=== PATIENT | female | born 1990 | race Caucasian/White ===

== ENCOUNTER 2016-07-07 20:57 | Emergency (ER) | payer OTHER | END 2016-07-07 21:35 | disposition home or self-care (01) | LOC: ER1 20:57 | DX: O99.89 Other specified diseases and conditions complicating pregnancy, childbirth and the puerperium (principal); R21 Rash and other nonspecific skin eruption; O99.511 Diseases of the respiratory system complicating pregnancy, first trimester; J45.909 Unspecified asthma, uncomplicated; O99.331 Smoking (tobacco) complicating pregnancy, first trimester; F17.210 Nicotine dependence, cigarettes, uncomplicated; Z88.8 Allergy status to other drugs, medicaments and biological substances; Z90.49 Acquired absence of other specified parts of digestive tract; Z79.899 Other long term (current) drug therapy; Z3A.01 Less than 8 weeks gestation of pregnancy | CPT/HCPCS: 99282 ==

== ENCOUNTER 2016-08-04 00:22 | Emergency (ER) | payer OTHER | END 2016-08-04 03:57 | disposition left against medical advice (07) | LOC: ER1 00:22 | DX: Z53.21 Procedure and treatment not carried out due to patient leaving prior to being seen by health care provider (principal) | CPT/HCPCS: 81001; 84703; 87086 ==

== ENCOUNTER 2016-10-06 19:28 | Emergency (ER) | payer OTHER ==
[2016-10-07 00:06] LABS: HEMOGLOBIN 12.9 gm/dl (12.3-15.3); RED BLOOD COUNT 3.73 M/UL (4.00-5.10); WHITE BLOOD COUNT 18.3 K/UL (4.5-11.0)
[2016-10-07 00:19] LABS: BUN/CREATININE RATIO 13 (0-10)
== END 2016-10-07 05:01 | disposition home or self-care (01) ==
LOC: ER1 19:28
PROVIDERS: Physician Assistant
DX: O23.592 Infection of other part of genital tract in pregnancy, second trimester (principal); N76.0 Acute vaginitis; B96.89 Other specified bacterial agents as the cause of diseases classified elsewhere; Z88.8 Allergy status to other drugs, medicaments and biological substances; Z3A.19 19 weeks gestation of pregnancy
CPT/HCPCS: 36415; 76815; 80053; 81001; 84702; 85025; 87086; 87210; 96360; 99284

== ENCOUNTER → 2021-12-06 | Outpatient (CLI) | payer OTHER ==
[~2021-12-06] MED LIST: BACTRIM DS TAB1 EACH PO; COLACE 100MG C100 MG PO; GLUCOPHAGE 500500 MG PO; IBUPROFEN600 MG PO; LEVAQUIN500 MG PO; LODINE CAP 300300 MG PO; SINGULAIR10 MG PO; TESSALON PERLE100 MG PO; TYLENOL 500 MG500 MG PO; VENTOLIN HFA 66.7 GM INH; ZOFRAN ODT 4 MG4 MG SL; ZOFRAN ODT4 MG PO
[2021-12-06 12:40] LABS: HEMOGLOBIN 14.3 gm/dl (12.3-15.3); RED BLOOD COUNT 4.12 M/UL (4.00-5.10); WHITE BLOOD COUNT 13.7 K/UL (4.5-11.0)
[2021-12-06 14:08] LABS: BUN/CREATININE RATIO 17 (0-10)
[2021-12-07 07:11] LABS: VITAMIN D, 25-HYDROXY 29.6 ng/mL (30.0-100.0)
[2021-12-10 21:10] LABS: 25-HYDROXY, VITAMIN D 30 ng/mL (.); 25-HYDROXY, VITAMIN D-2 <1.0 ng/mL (.); 25-HYDROXY, VITAMIN D-3 30 ng/mL (.)
== END ==
LOC: LAB 10:37
PROVIDERS: Registered Nurse Administrator
DX: E55.9 Vitamin D deficiency, unspecified (principal); Z00.00 Encounter for general adult medical examination without abnormal findings
CPT/HCPCS: 36415; 80053; 80061; 82306; 82607; 83036; 84439; 84443; 85025